=== PATIENT | male | born 1955 | race Caucasian/White ===

== ENCOUNTER 2022-08-01 03:45 | Day surgery (SDC) | payer OTHER ==
[2022-07-27 13:56] VITALS: BMI 30.4
[2022-08-01 10:05] VITALS: RESP 18
[2022-08-01] MEDS ORDERED: PROPOFOL 20 ML ONE (12:06)
[2022-08-01] MEDS ORDERED: MIDAZOLAM HCL 2 MG/2 ML SINGLE DOSE VIAL ONE (12:06)
[2022-08-01] MEDS ORDERED: LIDOCAINE HCL/PF 2% SDV 5ML VIAL ONE (12:07)
[2022-08-01 14:18] VITALS: BP 125/73; PULSE 58; TEMP 98.9
== END 2022-08-01 13:50 | disposition home or self-care (01) ==
LOC: JASU-SURG 03:45
PROVIDERS: ATTEND Urology
PROC: 0TF4XZZ Fragmentation in Left Kidney Pelvis, External Approach (ICD-10-PCS; principal; 2022-08-01 12:00)
DX: N20.0 Calculus of kidney (principal)
CPT/HCPCS: 82962